=== PATIENT | male | born 1935 | race Caucasian/White ===

== ENCOUNTER 2021-08-04 11:45 | Emergency (ER) | payer OTHER ==
[~2021-08-04] VITALS: Ht 165.1 cm; Wt 90.7 kg
--- NOTE | 2021-08-04 11:45 | NUR ---
1140 BIBA ALS TO ER BED 10
--- NOTE | 2021-08-04 12:13 | NUR ---
Pt arrived in ER at 1140. CPR continue with pt still on asytole. Intubation immediately performed by Dr. Escobedo. 2 Epinepherine, 1 calcium chloride, and 1 bicarbonate given. Pt continued to be in asystole. Time of called by Dr. Crowder at 1150.
--- NOTE | 2021-08-04 12:24 | NUR ---
Michael notified @ 8125. Reference#[id number]. Spoke with
--- NOTE | 2021-08-04 12:29 | NUR ---
Pt reported to Technical Training Coordinator's office. Technical Training Coordinator to call back.
--- NOTE | 2021-08-04 12:52 | NUR ---
Pt's at bedside.
--- NOTE | 2021-08-04 14:50 | NUR ---
LATE ENTRY-SB WHEEL ASSEMBLER JUSTINO GUZMAN RELEASED MR. MULLINS, MADE AWARE. CALLED ESTUARDO FIGUEREDO FOR PICK 2 HOURS.
--- NOTE | 2021-08-04 16:47 | NUR ---
PT MOVED TO 128
--- NOTE | 2021-08-04 17:08 | NUR ---
LATE ENTRY-[facility] REIMBURSEMENT DIRECTOR MR. MULLINS, MADE AWARE
== END 2021-08-04 11:50 ==
LOC: MED 11:45
DX: I46.9 Cardiac arrest, cause unspecified (principal); I48.91 Unspecified atrial fibrillation; I10 Essential (primary) hypertension; E11.9 Type 2 diabetes mellitus without complications; K21.9 Gastro-esophageal reflux disease without esophagitis; Z87.820 Personal history of traumatic brain injury; Z85.528 Personal history of other malignant neoplasm of kidney; Z85.46 Personal history of malignant neoplasm of prostate; Z96.651 Presence of right artificial knee joint; Z98.890 Other specified postprocedural states
CPT/HCPCS: 31500; 92950; 99285